=== PATIENT | male | born 1970 | race Caucasian/White ===

== ENCOUNTER 2017-09-26 08:10 | Emergency (ER) | payer BC, OTHER ==
[2017-09-26 08:16] VITALS: RESP 16
--- NOTE | 2017-09-26 08:26 | EDPHY ---
H & P Time Seen by Provider: 09/26/17 08:17 HPI/ROS: HPI Right knee injury. 46-year-old male by private vehicle. He was skiing yesterday. He reports that he hit a patch of dirt. This caught his ski and caused his knee to twist awkwardly. He complains of pain isolated to the lateral joint line of the right knee. No other injury or complaint. He is able to bear weight on the right knee. ROS: Constitutional: No fever, no chills. No weakness. Musculoskeletal: No back pain. No neck pain. As above. Skin: No rashes. No lacerations or abrasions. Neurological: No headache. No focal weakness or altered sensation. Past medical history: Sudden sub use, addiction, ACL injury. Social history: Here by himself. As above. Physical Exam: General Appearance: Alert, no distress. This patient is responding to questions appropriately and in full sentences. This patient appears well- hydrated and well-nourished. Head: Normocephalic atraumatic. Eyes: Pupils equal and round no pallor or injection. No lid edema, erythema or injection. Right knee exam: Vague tenderness on palpation over the right lateral joint line. No ecchymosis. No erythema, warmth or significant edema over this area. He does have a small effusion. The right knee joint is stable to valgus and varus stress testing as well as anterior and posterior drawer testing. The right lower extremity is neurovascularly intact. Neurological: Motor sensory function is grossly intact. Cranial nerves are normal. Slightly antalgic gait. Skin: Warm and dry, no rashes. Musculoskeletal: Neck is supple and nontender. As above. Extremities are symmetrical except noted. All joints range without pain or impingement except noted. Psychiatric: No agitation. No depression. Database: EKG: Imaging: Right knee x-ray series: Negative for fracture, subluxation, dislocation. Interpreted by me. Procedures: Emergency department course: Vital signs reviewed and are unremarkable. Patient sent for x-ray imaging of the right knee. 9:15 a.m., patient re-evaluated. Resting comfortably at this time. Results of x-rays discussed with him. Plan will be to place the right knee in an immobilizer brace. I will have him follow up with Orthopedics for re- evaluation and further management. He is in agreement with this plan. I discussed ibuprofen dosing with him for pain control. Return to emergency department precautions reviewed. All of his questions were answered. He was discharged in good condition. Differential Diagnosis: The differential diagnosis on this patient includes but is not limited to right knee sprain, lateral collateral ligament sprain. Fracture, subluxation, dislocation of the right knee unlikely. This represents a partial list of diagnoses considered. These considerations are based on history, physical exam , past history, reassessment and diagnostic testing. Smoking Status: Former smoker Constitutional: Initial Vital Signs Temperature (C) 36.7 C 09/26/17 08:13 Heart Rate 53 L 09/26/17 08:13 Respiratory Rate 16 09/26/17 08:13 Blood Pressure 119/75 09/26/17 08:13 O2 Sat (%) 96 09/26/17 08:13 O2 Delivery Mode Room Air Allergies/Adverse Reactions: No Known Allergies Allergy (Verified 09/26/17 08:13) Home Medications: Medication Instructions Recorded Levothyroxine Sodium 125 mcg PO 08/23/16 buPROPion XL [Wellbutrin Xl] 300 mg PO DAILY 08/23/16 Departure - Departure Disposition: Home, Routine, Self-Care Clinical Impression: Right knee sprain Condition: Good Instructions: Knee Sprain (ED) Additional Instructions: Read and follow provided instructions. Follow-up with Orthopedics, Dr. Altamirano, or 1 of his partners in 2-3 days for re- evaluation. Ibuprofen dosin mg every 6 hr as needed for pain. Take with meals. Take only for 3 days maximum. Return to the emergency department for worsening pain, swelling, discoloration or other serious concerns. As long as your knee is in the brace, you can bear weight as tolerated on your right knee. Work limitations include avoid heavy lifting, any undue stress or activity that causes you pain in your right knee. Referrals: NAME,UNKNOWN [Other] - As per Instructions
[2017-09-26 09:30] VITALS: BP 121/81; PULSE 56; TEMP 97.9; O2SAT 95
== END 2017-09-26 09:30 | disposition home or self-care (01) ==
DX: S83.91XA Sprain of unspecified site of right knee, initial encounter (principal); Z87.891 Personal history of nicotine dependence; W22.8XXA Striking against or struck by other objects, initial encounter; Y99.8 Other external cause status; Y93.23 Activity, snow (alpine) (downhill) skiing, snowboarding, sledding, tobogganing and snow tubing
CPT/HCPCS: L1830